=== PATIENT | male | born 1950 | race Caucasian/White ===

== ENCOUNTER 2017-06-25 09:46 | Emergency (ER) | payer MEDICARE ==
[2017-06-25 09:46] VITALS: BMI 41.9
[2017-06-25 09:56] VITALS: BP 174/88; PULSE 68; RESP 18; TEMP 97.6; O2SAT 96
--- NOTE | 2017-06-25 10:57 | C.PDOC ---
History Of Present Illness 67yo male with no past medical history presents to the ED for evaluation of redness to his posterior left shoulder. Patient states he woke up this morning when he felt a bug bite and states he noticed redness. Patient states he put a topical ointment on the area before coming to the ED. He denies any fever, chills and offers no other medical complaints. Time Seen by Provider: 06/25/17 10:02 Chief Complaint (Nursing): Abnormal Skin Integrity History Per: Patient History/Exam Limitations: no limitations Onset/Duration Of Symptoms: Mins Location Of Injury: Left: Shoulder, Posterior: Shoulder Quality Of Symptoms: Other (red) Past Medical History Reviewed: Historical Data, Nursing Documentation, Vital Signs Vital Signs: Last Vital Signs Temp 97.6 F 06/25/17 09:54 Pulse 68 06/25/17 09:54 Resp 18 06/25/17 11:15 BP 174/88 H 06/25/17 09:54 Pulse Ox 96 06/25/17 10:57 - Medical History PMH: HTN, Hypothyroidism Denies: Chronic Kidney Disease Surgical History: No Surg Hx - [facility] DX ULTRASOUND-HEAD/NECK (01/27/14) PERCUTAN NEEDLE BX OF THYROID GLAND (01/27/14) Family History: States: No Known Family Hx, Unknown Family Hx - Social History Hx Tobacco Use: No Hx Alcohol Use: No Hx Substance Use: No - Immunization History Hx Tetanus Toxoid Vaccination: No Hx Influenza Vaccination: No Hx Pneumococcal Vaccination: No Review Of Systems Constitutional: Negative for: Fever, Chills Skin: Positive for: Other (redness to left posterior shoulder) Physical Exam - Physical Exam Appears: Non-toxic, No Acute Distress Skin: Warm, Dry, No Rash, Other (no rash, lesions, bite jackson noted to left posterior shoulder) Head: Normacephalic Neck: Normal ROM Neurological/Psych: Oriented x3, Normal Speech, Normal Cognition ED Course And Treatment O2 Sat by Pulse Oximetry: 96 (RA) Pulse Ox Interpretation: Normal Medical Decision Making Medical Decision Making: Impression: 67yo male w/ complaints of bug bites to left posterior shoulder plan: -- Patient informed of physical exam findings. Patient stable for d/c home, informed to follow up with his PCP. Disposition - Disposition Disposition: HOME/ ROUTINE Disposition Time: 10:57 Condition: STABLE Forms: [facility] (Algerian), General Discharge Instructions - Clinical Impression Clinical Impression: Skin irritation - Scribe Statement The provider has reviewed the documentation as recorded by the Scribe Manasa Montilla All medical record entries made by the Karleyibe were at my direction and personally dictated by me. I have reviewed the chart and agree that the record accurately reflects my personal performance of the history, physical exam, medical decision making, and the department course for this patient. I have also personally directed, reviewed, and agree with the discharge instructions and disposition.
== END 2017-06-25 11:16 | disposition home or self-care (01) ==
LOC: C.ER 09:46
DX: L98.9 Disorder of the skin and subcutaneous tissue, unspecified (principal)

== ENCOUNTER 2017-07-26 08:59 | Day surgery (SDC) | payer MEDICARE ==
[2017-07-22 13:46] VITALS: BMI 45.1
[2017-07-26 10:49] VITALS: RESP 18
[2017-07-26] MEDS ORDERED: Propofol 10 mg/ml Inj (20 ML) ONE (11:24)
[2017-07-26] MEDS ORDERED: Absorbable Gelatin Sponge Size 12-7 ONE (11:40)
--- NOTE | 2017-07-26 11:59 | CP.SDSHP ---
Same Day Surgery H & P - History Proposed Procedure: Liver biopsy Pre-Op Diagnosis: Elevated LFTs - Allergies Allergies: Allergies No Known Allergies Allergy (Verified 06/25/17 09:56) - Physical Exam Vital Signs: Vital Signs 07/26/17 10:18 Temperature 97.8 F Pulse Rate 71 Respiratory 18 Rate Blood Pressure 148/79 O2 Sat by Pulse 98 Oximetry Mental Status: Alert & Oriented x3 Neuro: WNL Heart: WNL Lungs: WNL - Impression Impression: Pt with abnormal LFTs referred for liver biopsy. Plan US guided liver biopsy. Pt. Evaluated Today:Candidate for Anesthesia & Procedure: Yes (ASA 3 Malampati 3) - Date & Time Date: 07/26/17 Time: 11:30 Short Stay Discharge - Short Stay Discharge Admitting Diagnosis/Reason for Visit: LIVER
--- NOTE | 2017-07-26 12:01 | PCM.SURG1 ---
Surgeon's Initial Post Op Note - Surgeon's Notes Surgeon: Bridger Mar MD [employer] Supervisor: NONE Type of Anesthesia: IV Sedation Pre-Operative Diagnosis: Abnormal LFts Operative Findings: CT showed unremarkable liver Post-Operative Diagnosis: Abnormal LFTs Operation Performed: CT guided liver biopsy. 18 g needle advanced into the right hepatic lobe. Three 18-gauge core specimen obtained. Biopsy tract embolized with gelfoam. There were no complications. Specimen/Specimens Removed: 18 gauge core x 3 Estimated Blood Loss: EBL {In ML}: 1 Blood Products Given: N/A Drains Used: No Drains Post-Op Condition: Fair Date of Surgery/Procedure: 07/26/17 Time of Surgery/Procedure: 11:50
[2017-07-26 13:19] VITALS: TEMP 97; O2SAT 100
[2017-07-26 14:15] VITALS: BP 117/70; PULSE 77
--- NOTE | 2017-07-26 14:55 | CT ---
PROCEDURE: Date of procedure: 07/26/2017 Procedure: 1. CT-guided percutaneous core biopsy of liver 2. CT guidance for biopsy, CPT 78747 Medications: The patient was sedated by the anesthesiologist with IV sedation and monitoring, 5 cc 1% lidocaine. HISTORY: Abnormal LFTs TECHNIQUE: Following informed consent, the Pt's Abdomen was marked. The Pt was placed supine on the CT table and procedure time out was performed. A noncontrast CT scan was performed. The liver is unremarkable. The skin was prepped and draped in the usual sterile fashion. After the patient was sedated by anesthesiologist and the skin anesthetized with 1% lidocaine, an 18 gauge core needle was advanced percutaneously under direct CT guidance into the right hepatic lobe. Upon confirmation of needle position, three core specimens were obtained and sent for routine pathology. The biopsy track was then embolized with Gelfoam. A post biopsy CT scan performed showed no hematoma. A dressing was applied. IMPRESSION: CT-guided core biopsy of right liver for abnormal LFTs.
== END 2017-07-26 14:16 | disposition home or self-care (01) ==
LOC: EDBD → C.SPRAD 08:59
PROVIDERS: ATTEND Radiology Vascular & Interventional Radiology
DX: K74.0 Hepatic fibrosis (principal); K76.0 Fatty (change of) liver, not elsewhere classified
CPT/HCPCS: 47000; 77012; 82948; 88307; 88313; 88342; J2704; J3010

== ENCOUNTER 2018-10-04 08:17 | Outpatient (CLI) | payer MEDICARE | END 2018-10-04 08:18 | disposition home or self-care (01) | LOC: C.LAB 08:17 | DX: E03.9 Hypothyroidism, unspecified (principal); E04.2 Nontoxic multinodular goiter; E06.3 Autoimmune thyroiditis; E22.1 Hyperprolactinemia; E27.1 Primary adrenocortical insufficiency; R73.09 Other abnormal glucose ==

== ENCOUNTER 2018-10-04 08:34 | Outpatient (CLI) | payer MEDICARE | END 2018-10-04 08:35 | disposition home or self-care (01) | LOC: C.LAB 08:34 | DX: M19.90 Unspecified osteoarthritis, unspecified site (principal) ==